=== PATIENT | male | born 1995 | race Caucasian/White ===

== ENCOUNTER 2017-11-27 14:33 | Emergency (ER) | payer SELFPAY ==
--- NOTE | 2017-11-27 15:04 | EDM.PDOC ---
ED HPI GENERAL MEDICAL PROBLEM - General Chief Complaint: Head Injury Stated Complaint: NECK PAIN Time Seen by Provider: 11/27/17 14:34 Source of Information: Reports: Patient History Limitations: Reports: No Limitations - History of Present Illness INITIAL COMMENTS - FREE TEXT/NARRATIVE: HISTORY AND PHYSICAL: History of present illness: Patient is a 22-year-old male who presents to the emergency room with complaints of head and neck pain after a fall on Sunday. He reports he was at work when a #40- 50 pound pipe fell hitting him in the back of the head. He states he fell to the ground but did not lose consciousness. Shortly after he was evaluated at [facility] and was discharged to home with a prescription for diclofenac and Flexeril. He states he has not taken these medications and his symptoms have "gotten worse". He reports that he will sit down to rest and "will fall asleep" and is told that is difficult to arouse him from sleeping. He denies any fever, chills, abdominal pain, nausea, vomiting, or diarrhea/ constipation. He denies any urinary or fecal incontinence. Denies any numbness or tingling to the peripheral extremities. Review of systems: As per history of present illness and below otherwise all systems reviewed and negative. Past medical history: As per history of present illness and as reviewed below otherwise noncontributory. Surgical history: As per history of present illness and as reviewed below otherwise noncontributory. Social history: No reported history of drug or alcohol abuse. Family history: As per history of present illness and as reviewed below otherwise noncontributory. Physical exam: General: Well-developed and well-nourished 22-year-old male. Alert and oriented. Nontoxic appearing and in no acute distress. HEENT: No crepitus, obvious deformities or tenderness with palpation of the scalp. Normocephalic, pupils reactive, negative for conjunctival pallor or scleral icterus, mucous membranes moist, throat clear, neck supple, nontender, trachea midline. No drooling or trismus. No meningeal signs. Lungs: Clear to auscultation, breath sounds equal bilaterally, chest nontender. Heart: S1S2, regular, negative for clicks, rubs, or JVD. Abdomen: Soft, nondistended, nontender. Negative for masses or hepatosplenomegaly. Negative for costovertebral tenderness. Pelvis: Stable nontender. Genitourinary: Deferred. Rectal: Deferred. C-spine/Back: No pinpoint vertebral tenderness upon palpation. No crepitus, step -offs or obvious deformities noted. Does have some muscular tenderness with palpation laterally of the C-spine and upper thoracic spine. Urinary or fecal incontinence. He will to walk on toes and heels without difficulty. Gait is steady and even. Denies any numbness or tingling to upper or lower extremities. Extremities: Moves all extremities. Denies any pain or discomfort with range of motion or palpation. Neurovascular unremarkable. Neuro: Awake, alert, oriented. Cranial nerves II through XII unremarkable. Cerebellum unremarkable. Motor and sensory unremarkable throughout. Exam nonfocal. CT of the head and neck are unremarkable, incidental finding of a retention cyst in the right maxillary sinus. CBC, CMP and UA are within normal limits. Patient had received Flexeril and an anti-inflammatory from [facility]. He states he had not filled or started these medications at this time. Encouraged him to take medications. Rest for the next 1-2 days. Patient does show a UTI in the urinalysis. We'll place the patient on Levaquin once daily 7 days. The patient does state that he and his partner was recently treated for gonorrhea, we'll add a gonorrhea and chlamydia culture onto his lab work. Diagnostics: CBC, CMP, UA, CT head/neck Therapeutics: [] Impression: Head Injury Post Concussion UTI Plan: 1. Take the antibiotic for the UTI. Culture was added onto this, will call if results require new medications and further testing. 2. Please take your prescribed Flexeril and anti-inflammatory as prescribed. Rest for the next 1-2 days. Gentle heat to the area will help with discomfort. Gentle stretching. 3. Follow-up with your primary caregiver in the next couple days. Return to the ED as needed and as discussed. Definitive disposition and diagnosis as appropriate pending reevaluation and review of above. Onset Date: 11/24/17 Duration: Day(s): Location: Reports: Head, Neck Back Pain Score (Numeric/FACES): 7 Neck and head Pain Score (Numeric/FACES): 6 - Related Data Allergies Allergy/AdvReac Type Severity Reaction Status Date / Time pregabalin [From Lyrica] Allergy Unknown Cannot Verified 11/27/17 14:53 Remember laxatives Allergy Cannot Uncoded 11/27/17 14:53 Remember Home Meds: Home Meds . [No Known Home Meds] 11/27/17 [History] ED ROS GENERAL - Review of Systems Review Of Systems: ROS reveals no pertinent complaints other than HPI. ED EXAM, HEAD INJURY - Physical Exam Exam: See Below (See dictation) Course - Vital Signs Last Recorded V/S: Last Vital Signs Temp 99.1 F 11/27/17 14:55 Pulse 92 11/27/17 14:55 Resp 16 11/27/17 14:55 BP 113/76 11/27/17 14:55 Pulse Ox 98 11/27/17 14:55 - Orders/Labs/Meds Orders: Active Orders 24 hr Category Date Time Status CHLAMYDIA AND GONORRHEA BY TMA Stat Lab 11/27/17 16:12 Ordered CULTURE URINE [RM] Stat Lab 11/27/17 16:12 Ordered Labs: Laboratory Tests 11/27/17 11/27/17 11/27/17 Range/Units 15:07 15:07 15:50 WBC 6.47 (4.0-11.0) K/uL RBC 5.14 (4.50-5.90) M/uL Hgb 15.5 (13.0-17.0) g/dL Hct 44.8 (38.0-50.0) % MCV 87.2 (80.0-98.0) fL MCH 30.2 (27.0-32.0) pg MCHC 34.6 (31.0-37.0) g/dL RDW Std Deviation 41.8 (28.0-62.0) fl RDW Coeff of [place] 13 (11.0-15.0) % Plt Count 249 (150-400) K/uL MPV 9.50 (7.40-12.00) fL Neut % (Auto) 51.5 (48.0-80.0) % Lymph % (Auto) 36.6 (16.0-40.0) % [place] % (Auto) 8.8 (0.0-15.0) % Eos % (Auto) 2.6 (0.0-7.0) % Baso % (Auto) 0.5 (0.0-1.5) % Neut # (Auto) 3.3 (1.4-5.7) K/uL Lymph # (Auto) 2.4 (0.6-2.4) K/uL [place] # (Auto) 0.6 (0.0-0.8) K/uL Eos # (Auto) 0.2 (0.0-0.7) K/uL Baso # (Auto) 0.0 (0.0-0.1) K/uL Nucleated RBC % 0.0 /100WBC Nucleated RBCs # 0 K/uL Sodium 141 (136-146) mmol/L Potassium 4.1 (3.5-5.1) mmol/L Chloride 109 (98-110) mmol/L Carbon Dioxide 27 (21-31) mmol/L BUN 16 (6.0-23.0) mg/dL Creatinine 0.9 (0.6-1.5) mg/dL Est Cr Clr Drug Dosing TNP Estimated GFR (MDRD) > 60.0 ml/min Glucose 79 (60-110) mg/dL Calcium 9.5 (8.8-10.8) mg/dL Total Bilirubin 1.1 (0.1-1.5) mg/dL AST 16 (5-40) IU/L ALT 16 (8-54) IU/L Alkaline Phosphatase 53 (40-150) Total Protein 7.0 (6.0-8.0) g/dL Albumin 4.3 (3.5-5.0) g/dL Globulin 2.7 (2.0-3.5) g/dL Albumin/Globulin Ratio 1.6 (1.3-2.8) Urine Color YELLOW Urine Appearance CLEAR Urine pH 6.0 (5.0-8.0) Ur Specific [place] 1.025 (1.001-1.035) Urine Protein NEGATIVE (NEGATIVE) mg/dL Urine Glucose (UA) NEGATIVE (NEGATIVE) mg/dL Urine Ketones NEGATIVE (NEGATIVE) mg/dL Urine Occult Blood NEGATIVE (NEGATIVE) Urine Nitrite NEGATIVE (NEGATIVE) Urine Bilirubin NEGATIVE (NEGATIVE) Urine Urobilinogen 0.2 (<2.0) EU/dL Ur Leukocyte Esterase NEGATIVE (NEGATIVE) Urine RBC 0-1 (0-2/HPF) Urine WBC 1-3 (0-5/HPF) Ur Epithelial Cells OCCASIONAL (NONE-FEW) Urine Bacteria MODERATE (NEGATIVE) Departure - Departure Time of Disposition: 16:15 Disposition: Home, Self-Care 01 Clinical Impression: Post-concussional syndrome Head injury Qualifiers: Encounter type: subsequent encounter Qualified Code(s): S09.90XD - Unspecified injury of head, subsequent encounter UTI (urinary tract infection) Qualifiers: Urinary tract infection type: acute cystitis Hematuria presence: without hematuria Qualified Code(s): N30.00 - Acute cystitis without hematuria - Discharge Information Referrals: PCP,None [Primary Care Provider] - Forms: ED Department Discharge Additional Instructions: My general discharge The following information is given to patients seen in the emergency department who are being discharged to home. This information is to outline your options for follow-up care. We provide all patients seen in our emergency department with a follow-up referral. The need for follow-up, as well as the timing and circumstances, are variable depending upon the specifics of your emergency department visit. If you don't have a primary care physician on staff, we will provide you with a referral. We always advise you to contact your personal physician following an emergency department visit to inform them of the circumstance of the visit and for follow-up with them and/or the need for any referrals to a consulting specialist. The emergency department will also refer you to a specialist when appropriate. This referral assures that you have the opportunity for follow-up care with a specialist. All of these measure are taken in an effort to provide you with optimal care, which includes your follow-up. Under all circumstances we always encourage you to contact your private physician who remains a resource for coordinating your care. When calling for follow-up care, please make the office aware that this follow-up is from your recent emergency room visit. If for any reason you are refused follow-up, please contact the [facility] Emergency Department at and asked to speak to the emergency department charge nurse. [facility] [address] [place] [id number] 1. Take the antibiotic for the UTI. Culture was added onto this, will call if results require new medications and further testing. 2. Please take your prescribed Flexeril and anti-inflammatory as prescribed. Rest for the next 1-2 days. Gentle heat to the area will help with discomfort. Gentle stretching. 3. Follow-up with your primary caregiver in the next couple days. Return to the ED as needed and as discussed. - My Orders Last 24 Hours: My Active Orders 11/27/17 16:12 CHLAMYDIA AND GONORRHEA BY TMA Stat CULTURE URINE [RM] Stat - Assessment/Plan Last 24 Hours: My Active Orders 11/27/17 16:12 CHLAMYDIA AND GONORRHEA BY TMA Stat CULTURE URINE [RM] Stat
--- NOTE | 2017-11-27 15:39 | CT ---
EXAMINATION: CT cervical spine HISTORY: Pain COMPARISON: None TECHNIQUE: Axial CT images obtained through the cervical spine without contrast. Coronal and sagittal reconstructions obtained. FINDINGS: The cervical spinal alignment is normal. The vertebral body heights and disc spaces appear well-maintained. Bone mineralization is normal. No fracture or acute osseous abnormality. There is re tention cyst is noted within the right maxillary sinus. The paravertebral soft tissues are normal. Th e lung apices are clear. IMPRESSION: No acute findings noted within the cervical spine.
[2017-11-27 15:41] LABS: CHLORIDE,CL 109 mmol/L (98-110); SODIUM,NA 141 mmol/L (136-146)
--- NOTE | 2017-11-27 15:42 | CT ---
EXAMINATION: Non contrast CT head. Coronal and sagittal reformats. HISTORY: Pain FINDINGS: No evidence of intra or extra axial hemorrhage, mass, midline shift, hydrocephalus or edema. No hyp oattenuation changes in the major vascular territories to suggest acute infarct. No abnormal intracranial calcifications are detected. No evidence of substantial vascular calcificat ions. Mucous retention cyst within the right maxillary sinus. Moderate rightward deviation of the nasal sep rupinder. Mastoid air cells are clear. Orbits and globes are symmetric. Pituitary fossa appears unremarkable. Calvarium is intact. No evidence of skull fracture. IMPRESSION: No acute intracranial findings.
== END 2017-11-27 16:30 | disposition home or self-care (01) ==
LOC: MW.ED 14:33
DX: F07.81 Postconcussional syndrome (principal); N30.00 Acute cystitis without hematuria; Z88.8 Allergy status to other drugs, medicaments and biological substances; W01.10XA Fall on same level from slipping, tripping and stumbling with subsequent striking against unspecified object, initial encounter
CPT/HCPCS: 36415; 70450; 70450-26; 72125; 72125-26; 80053; 81001; 85025; 87086; 87491; 87591; 99284; 99284-25

== ENCOUNTER 2021-09-02 05:31 | Emergency (ER) | payer SELFPAY ==
[2021-09-02] MEDS ORDERED: Ketorolac 15 MG/ML SDV IM ONE (05:51)
--- NOTE | 2021-09-02 06:12 | EDM.PDOC ---
ED HPI GENERAL MEDICAL PROBLEM - General Chief Complaint: General Stated Complaint: NECK HURTS Time Seen by Provider: 09/02/21 05:56 - History of Present Illness INITIAL COMMENTS - FREE TEXT/NARRATIVE: CHIEF COMPLAINT(S): Neck pain HISTORY OF PRESENT ILLNESS: This is a 26-year-old man with a past medical history of fibromyalgia who presents to the emergency department with a chief complaint of neck pain. The patient states that he feels like his neck is swelling in the back of his head is swelling. He denies any blurry vision, neck stiffness, fever, or chills. He denies any IV drug use. He describes his pain as 5 out of 10 and sharp that is worse with movement. He denies any numbness, tingling, weakness. He denies any neck or head injury. He denies any bowel incontinence, urinary incontinence or saddle anesthesia. He states that this has happened in the past and was told that it was his "fibro-." He states that he has his medications in [place] but he left his medications in [place]. He states that his medications are Xanax and tramadol. He denies any chest pain, shortness of breath, abdominal pain. He denies any sore throat, trismus or drooling. He denies any ear pain or tinnitus. REVIEW OF SYSTEMS: Constitutional: Denies fever, chills. Eyes: Denies eye pain Ears, Nose, Mouth, & Throat: Denies earache Cardiovascular: Denies chest pain Respiratory: Denies shortness of breath Gastrointestinal: Denies Nausea, vomiting, diarrhea, hematochezia. Genitourinary: Denies hematuria Skin:Denies a rash MSK: Positive for neck pain and posterior head pain Neurological: Denies blurred vision, numbness and tingling, weakness Psychiatric: Denies depression PAST MEDICAL HISTORY: As per history of present illness and as reviewed below otherwise noncontributory. SURGICAL HISTORY: As per history of present illness and as reviewed below otherwise noncontributory. SOCIAL HISTORY: As per history of present illness and as reviewed below otherwise noncontributory. FAMILY HISTORY: As per history of present illness and as reviewed below otherwise noncontributory. EXAMINATION OF ORGAN SYSTEMS/BODY AREAS: Constitutional: Blood pressure was 113/73, heart rate 82, respiratory rate 17 with an oxygen saturation of 96% on room air. Temperature 36.2 General: Well-appearing man who is in no acute distress Psychiatric: Appropriate mood and affect. Eyes: No scleral icterus or conjunctival erythema ENMT: Moist mucous membranes. No pharyngeal erythema no stridor, drooling, trismus. Bilateral tonsils without any exudates or swelling. Uvula was midline. Neck was supple and nontender. No anterior posterior cervical lymphadenopathy. Cardiovascular: Regular, rate, and rhythm. No gallops, murmurs, or rubs. Bilateral upper extremity pulses symmetric and intact. No peripheral edema. No JVD. Respiratory: Lungs clear to auscultation bilaterally. No wheezes, rales, or rhonchi. Gastrointestinal: Soft, non-tender, non-distended. Normoactive bowel sounds Genitourinary: No suprapubic tenderness Musculoskeletal: Normal range of motion. Bilateral paracervical muscle tenderness. No evidence of swelling anywhere. Negative meningeal signs Skin: No lesions or abrasions. Neurological: Alert, GCS 15 strength and sensation was grossly intact in upper and lower extremities bilaterally. MEDICAL DECISION MAKING AND COURSE IN THE ED WITH INTERPRETATION/REVIEW OF DIAGNOSTIC STUDIES: This is a 26-year-old man with a past medical history of fibromyalgia who presents to the emergency department with bilateral neck pain. At this time on evaluation I do believe this is secondary to neck strain. We will provide the patient with Toradol for pain relief. I did discuss strict return precautions and symptomatic treatment at home. He was amenable to discharge at this time and had no further questions. DISPOSITION: The patient was discharged home in stable condition. The patient will follow up with primary care physician in 3 to 5 days CONDITION: Fair PROCEDURES: None FINAL IMPRESSION(S)/DIAGNOSES: 1. Acute neck strain Kemal Wood M.D. Bilateral Neck Pain Score (Numeric/FACES): 5 - Related Data Allergies Allergy/AdvReac Type Severity Reaction Status Date / Time pregabalin [From Lyrica] Allergy Unknown Cannot Verified 09/02/21 05:46 Remember Penicillins Allergy Rash Verified 09/02/21 05:46 laxatives Allergy Cannot Uncoded 09/02/21 05:46 Remember Home Meds: Home Meds ALPRAZolam [Xanax] 0.25 mg PO DAILY PRN 11/01/20 [History] traMADol [Ultram] 50 mg PO Q6H PRN 11/01/20 [History] Past Medical History - Past Health History Medical/Surgical History: Denies Medical/Surgical History Cardiovascular History: Reports: Angina Other Cardiovascular History: inhaled fumes from [employer] tank in 2013 and had issues with chest pain after that Musculoskeletal History: Reports: Back Pain, Chronic, Fibromyalgia, Neck Pain, Chronic Neurological History: Reports: Concussion Other Neuro History: post concussion syndrom last year Psychiatric History: Reports: Anxiety, Depression - Infectious Disease History Infectious Disease History: Reports: None Social & Family History - Family History Family Medical History: No Pertinent Family History Cardiac: Reports: CAD Oncologic: Reports: Other (See Below) - Caffeine Use Caffeine Use: Reports: Coffee - Recreational Drug Use Recreational Drug Use: No ED ROS GENERAL - Review of Systems Review Of Systems: See Below ED EXAM, GENERAL - Physical Exam Exam: See Below Course - Vital Signs Last Recorded V/S: Last Vital Signs Temp 36.2 C 09/02/21 05:47 Pulse 82 09/02/21 05:47 Resp 17 09/02/21 05:47 BP 115/73 09/02/21 05:47 Pulse Ox 96 09/02/21 05:47 - Orders/Labs/Meds Meds: Medications Discontinued Medications Generic Name Dose Route Start Last Admin Trade Name Freq PRN Reason Stop Dose Admin Ketorolac Tromethamine 30 mg 09/02/21 05:51 09/02/21 06:01 Ketorolac 15 Mg/Ml Sdv IM 09/02/21 05:52 30 mg ONETIME ONE Administration Departure - Departure Time of Disposition: 06:11 Disposition: Home, Self-Care 01 Condition: Fair Clinical Impression: Neck strain, Back strain - Discharge Information *PRESCRIPTION DRUG MONITORING PROGRAM REVIEWED*: No *COPY OF PRESCRIPTION DRUG MONITORING REPORT IN PATIENT MICHAEL: No Instructions: Muscle Strain Referrals: Juaquin Ashton MD [Primary Care Provider] - Forms: ED Department Discharge Additional Instructions: You were evaluated today on an emergent basis. At this time I do believe the pain you are experiencing is likely secondary to a neck/back strain. I recommend use Tylenol and Motrin alternating for pain relief. I recommend you follow-up with your primary care physician for reevaluation. As discussed if you have any trouble breathing, swallowing, start drooling or have a fever with a stiff neck I want you to return to the emergency department. [facility] [address] [place] [address] [facility] [address] [place] [id number] The patient is informed of any results of their evaluation and diagnostic workup and all questions are answered. They are given discharge instructions and return precautions. The patient is stable for discharge. The patient states they understand and agree with the plan and that they will return if their symptoms get worse or if they have any new concerns. The following information is given to patients seen in the emergency department who are being discharged to home. This information is to outline your options for follow-up care. We provide all patients seen in our emergency department with a follow-up referral. The need for follow-up, as well as the timing and circumstances, are variable depending upon the specifics of your emergency department visit. If you don't have a primary care physician on staff, we will provide you with a referral. We always advise you to contact your personal physician following an emergency department visit to inform them of the circumstance of the visit and for follow-up with them and/or the need for any referrals to a consulting specialist. The emergency department will also refer you to a specialist when appropriate. This referral assures that you have the opportunity for follow-up care with a specialist. All of these measure are taken in an effort to provide you with optimal care, which includes your follow-up. Under all circumstances we always encourage you to contact your private physician who remains a resource for coordinating your care. When calling for follow-up care, please make the office aware that this follow-up is from your recent emergency room visit. If for any reason you are refused follow-up, please contact the [facility] Emergency Department at and asked to speak to the emergency department charge nurse.
== END 2021-09-02 06:30 | disposition home or self-care (01) ==
LOC: MW.ED 05:31
DX: S16.1XXA Strain of muscle, fascia and tendon at neck level, initial encounter (principal); S39.012A Strain of muscle, fascia and tendon of lower back, initial encounter; Z88.8 Allergy status to other drugs, medicaments and biological substances; Z88.0 Allergy status to penicillin; Z91.048 Other nonmedicinal substance allergy status; X58.XXXA Exposure to other specified factors, initial encounter
CPT/HCPCS: 96372; 99283; J1885